=== PATIENT | male | born 1995 | race Caucasian/White ===

== ENCOUNTER 2025-04-19 09:29 | Emergency (ER) | payer SELFPAY ==
[~2025-04-19] VITALS: Ht 175.3 cm; Wt 70.0 kg
[2025-04-19 09:39] VITALS: O2SAT 96
[2025-04-19 10:08] VITALS: BP 124/81; PULSE 95; RESP 18; TEMP 36.8; O2SAT 98
== END 2025-04-19 10:20 | disposition home or self-care (01) ==
LOC: ER 09:29
DX: S06.0XAA Concussion with loss of consciousness status unknown, initial encounter (principal); G44.309 Post-traumatic headache, unspecified, not intractable; W22.09XA Striking against other stationary object, initial encounter; Y93.89 Activity, other specified; Y92.89 Other specified places as the place of occurrence of the external cause; Y99.8 Other external cause status
CPT/HCPCS: 99282